=== PATIENT | female | born 1950 | race Caucasian/White ===

== ENCOUNTER 2017-08-20 16:18 | Emergency (ER) | payer MEDICARE, BC ==
[~2017-08-20] VITALS: Ht 170.2 cm; Wt 68.0 kg
[2017-08-20] MEDS ORDERED: IV NORMAL SALINE 500 ML IV ONE (16:45)
[2017-08-20] MEDS ORDERED: MORPHINE SULFATE 2 MG/1 ML DISP.SYRIN IV ONE (16:45)
[2017-08-20] MEDS ORDERED: ONDANSETRON IV *ER 4 MG/2 ML VIAL IV ONE (16:45)
[2017-08-20] MEDS ORDERED: MORPHINE SULFATE 2 MG/1 ML DISP.SYRIN ONE ×2 (16:57→17:08)
[2017-08-20] MEDS ORDERED: ONDANSETRON 4 MG/2 ML VIAL ONE (16:57)
--- NOTE | 2017-08-20 18:55 | NUR ---
dr. hernandez talking to dr. kingsley for ortho consult again
[2017-08-20] MEDS ORDERED: HYDROMORPHONE 1 MG/1 ML DISP.SYRIN IV ONE (19:30)
[2017-08-20] MEDS ORDERED: HYDROMORPHONE 1 MG/1 ML DISP.SYRIN ONE (19:41)
--- NOTE | 2017-08-20 19:57 | NUR ---
Pt medicted for pain. Pt splinted, pos CMS s/p application. IV dc'd, catheter intact. Drsg applied. No problems noted to site.
--- NOTE | 2017-08-20 20:07 | NUR ---
Called [facility], spoke with JAME Durant to update that pt was headed directly to their facility s/p discharge from here.
[2017-08-20 20:08] VITALS: BP 144/78
== END 2017-08-20 20:10 | disposition home or self-care (01) ==
LOC: ER 16:19
DX: S52.591A Other fractures of lower end of right radius, initial encounter for closed fracture (principal); W19.XXXA Unspecified fall, initial encounter; Y93.89 Activity, other specified; Y92.89 Other specified places as the place of occurrence of the external cause; Y99.8 Other external cause status
CPT/HCPCS: 73090; 73100; 73120; A4663; J1170; J2270; J2405; J7030

== ENCOUNTER 2017-12-28 15:12 | Inpatient (IN) | payer MEDICARE, BC ==
[~2017-12-28] VITALS: Ht 170.2 cm; Wt 68.0 kg
[2017-12-28 15:50] LABS: BASOPHILS % (AUTO) 0.2 % (0.0-2.0); EOSINOPHILS % (AUTO) 0.1 % (0.0-7.0); HEMOGLOBIN 14.2 g/dL (10.9-14.3); LYMPHOCYTES # (AUTO) 0.2 K/uL (20.0-40.0); LYMPHOCYTES % (AUTO) 2.8 % (20.5-51.5); MEAN CORPUSCULAR HEMOGLOBIN 29.7 uug (24.7-32.8); MEAN CORPUSCULAR HGB CONC 33 g/dL (32.3-35.6); MEAN CORPUSCULAR VOLUME 90.1 fL (75.5-95.3); MONOCYTES # (AUTO) 0.2 K/uL (2.0-10.0); MONOCYTES % (AUTO) 2.7 % (0.0-11.0); NEUTROPHILS % (AUTO) 94.2 % (38.5-71.5); PLATELET COUNT (AUTO) 143 K/uL (179-408); RED BLOOD CELL COUNT(AUTO) 4.78 MIL/uL (3.63-4.92); WHITE BLOOD COUNT (AUTO) 7.4 K/uL (3.8-11.8)
[2017-12-28 15:56] LABS: CREATININE 0.8 mg/dL (0.6-1.3); POTASSIUM 4.1 mmol/L (3.5-5.1)
[2017-12-28 16:09] LABS: BILIRUBIN,DIRECT 0.1 mg/dL (0.0-0.2); BILIRUBIN,TOTAL 0.6 mg/dL (0.2-1.0); TOTAL PROTEIN, SERUM 7.6 g/dL (6.4-8.2)
[2017-12-28] MEDS ORDERED: NITROGLYCERIN OINT 1 GM PACKET TP ONE ×2 (16:30→16:37)
[2017-12-28] MEDS ORDERED: ASPIRIN 81 MG TAB.CHEW PO ONE (16:30)
[2017-12-28] MEDS ORDERED: ASPIRIN 81 MG TAB.CHEW ONE (16:37)
--- NOTE | 2017-12-28 16:46 | NUR ---
Patient and spouse are still refusing IV line insertion despite repeated bedside teachings about the importance of the IV line for patient with chest pains, MD notified. Patient is now waiting for telemetry bed & nurse assigned from 2nd floor clinic charge nurse Merlie.
[2017-12-28] MEDS ORDERED: MAGNESIUM HYDROXIDE 30 ML LIQUID UDC PO PRN (17:15)
[2017-12-28] MEDS ORDERED: ONDANSETRON 4 MG/2 ML VIAL IV PRN (17:15)
[2017-12-28] MEDS ORDERED: ZOLPIDEM 5 MG TABLET PO PRN (17:15)
[2017-12-28] MEDS ORDERED: HYDROCODONE/APAP 5-325MG TABLET PO PRN (17:15)
[2017-12-28] MEDS ORDERED: MORPHINE SULFATE 2 MG/1 ML DISP.SYRIN IV PRN (17:15)
[2017-12-28] MEDS ORDERED: Z GUARD REMEDY PASTE 57 GM TUBE TOP PRN (17:15)
[2017-12-28 17:30] VITALS: BP 108/64
[2017-12-28] MEDS ORDERED: MORPHINE SULFATE 4 MG/1 ML DISP.SYRIN IV PRN (17:30)
--- NOTE | 2017-12-28 17:30 | NUR ---
received from ER per stretcher awake alert and oriented, with c/o nausea vomiting , diarrhea and chest discomfort, at bedside, Dr Faulkner here and talking to pt and , routine admission care rendered, oriented to bed controls, call light within reach
--- NOTE | 2017-12-28 18:58 | NUR ---
ADMISSION COMPLETED AT THE BEDSIDE PATIENT HAS NO IV ACCESS AND PER THE ER REPORT PATIENT AND HER REFUSED INSERTION OF IV HEPL[place].
[2017-12-28 20:24] VITALS: BP 92/49
[2017-12-28] MEDS ORDERED: ENOXAPARIN SODIUM 40 MG/0.4 ML DISP.SYRIN SQ SCH (21:00)
[2017-12-28] MEDS ORDERED: NITROGLYCERIN OINT 1 GM PACKET TP SCH (21:00)
--- NOTE | 2017-12-28 21:05 | NUR ---
PT RECEIVED IN BED, AWAKE. FAMILY AT BEDSIDE. A/OX4. ABLE TO MAKE NEEDS KNOWN. V/S STABLE. IN NO ACUTE DISTRESS. PT C/O NEW ONSET LEFT SIDE NECK PAIN 04/10, REFUSES PAIN MEDICATIONS. ICE PACK PROVIDED. 70 SINUS RHYTHM ON THE TELE MONITOR. NO IV IN PLACE. PT REFUSES, MD AWARE. ON RA, TOLERATING WELL. PT HAS FEVER OF 100.5, COOLING MEASURES PROVIDED. BLANKETS REMOVED, ROOM COOLED, AND ICE PACK IN PLACE. SAFETY MEASURES IMPLEMENTED. CALL LIGHT WITHIN REACH.
[2017-12-28] MEDS: ACETAMINOPHEN 325 MG TABLET PO PRN (21:10)
--- NOTE | 2017-12-29 | NUR ---
PT REFUSED MIDNIGHT V/S. IN STABLE CONDITION. WILL CONT TO MONITOR.
[2017-12-29 04:24] VITALS: BP 112/60
[2017-12-29] MEDS: ACETAMINOPHEN 325 MG TABLET PO PRN (05:26)
--- NOTE | 2017-12-29 05:55 | NUR ---
END OF SHIFT NOTES. PT SLEPT WELL THROUGHOUT SHIFT. IN STABLE CONDITION. 78 SINUS RHYTHM ON THE TELE MONITOR. CONT TO REFUSE IV PLACEMENT. TOLERATED RA WELL. PT HAS FEVER OF 100.1F. COOLING MEASURES CONTINUED. ROOM TEMP DECREASED, BLANKETS REMOVED, ICE PACK PROVIDED. TYLENOL ADMINISTERED ORDERED. ALL NEEDS ATTENDED. SAFETY MAINTAINED. CALL LIGHT WITHIN REACH.
[2017-12-29 06:43] LABS: BASOPHILS % (AUTO) 0.1 % (0.0-2.0); EOSINOPHILS % (AUTO) 0.1 % (0.0-7.0); HEMATOCRIT 41.3 % (31.2-41.9); HEMOGLOBIN 13.7 g/dL (10.9-14.3); LYMPHOCYTES # (AUTO) 0.6 K/uL (20.0-40.0); LYMPHOCYTES % (AUTO) 9.5 % (20.5-51.5); MEAN CORPUSCULAR HEMOGLOBIN 29.8 uug (24.7-32.8); MEAN CORPUSCULAR HGB CONC 33 g/dL (32.3-35.6); MONOCYTES # (AUTO) 0.3 K/uL (2.0-10.0); MONOCYTES % (AUTO) 5.1 % (0.0-11.0); NEUTROPHILS # (AUTO) 5.3 K/uL (1.8-8.9); NEUTROPHILS % (AUTO) 85.2 % (38.5-71.5); PLATELET COUNT (AUTO) 124 K/uL (179-408); RED BLOOD CELL COUNT(AUTO) 4.59 MIL/uL (3.63-4.92); WHITE BLOOD COUNT (AUTO) 6.2 K/uL (3.8-11.8)
[2017-12-29 06:54] LABS: CREATININE 0.8 mg/dL (0.6-1.3); MAGNESIUM 1.8 mg/dL (1.8-2.4); PHOSPHOROUS 3.5 mg/dL (2.5-4.9); POTASSIUM 3.8 mmol/L (3.5-5.1)
[2017-12-29] MEDS ORDERED: PANTOPRAZOLE SODIUM 40 MG TABLET.DR PO SCH (07:00)
--- NOTE | 2017-12-29 07:25 | NUR ---
RECEIVED SHIFT REPORT FROM DESKTOP SUPPORT ASSOCIATE NURSE. PATIENT AWAKE, RESTING COMFORTABLY IN BED. STABLE CONDITION, NO S/S OF DISTRESS. NO COMPLAINTS OF PAIN. PT. REFUSES IV TO BE INSERTED. CALL LIGHT WITHIN REACH. WILL MONITOR TEMP.
--- NOTE | 2017-12-29 08:15 | NUR ---
ADDITIONAL TABLET OF PROTONIX 40 MG PO PULLED OUT OF PIXIS BECAUSE THE FIRST DOSE WAS DROPPED ONTO THE FLOOR.
[2017-12-29] MEDS ORDERED: ASPIRIN 325 MG TABLET PO SCH (09:00)
[2017-12-29 11:27] VITALS: BP 103/58
--- NOTE | 2017-12-29 11:54 | NUR ---
PATIENT DISCHARGED AT THIS TIME IN STABLE CONDITION, NO S/S OF DISTRESS. VITAL SIGNS STABLE. ACCOMPANIED BY NAMED MAX. BEING DISCHARGED HOME. BELONGINGS CHECKLIST COMPLETED AND SIGNED BY PT. DISCHARGE INSTRUCTIONS/EDUCATION PROVIDED AND GIVEN A COPY TO PATIENT. DISCHARGE PACKET ALSO PROVIDED TO PATIENT. TELEMETRY BOX RETURNED TO TAILING MACHINE OPERATOR. ID BAND TAKEN OFF. PATIENT DID NOT HAVE IV LINE DUE TO REFUSAL. TROPONIN RESULT CAME BACK NEGATIVE AND PATIENT ABLE TO BE DISCHARGED. PT AMBULATORY AND LEFT HOSPITAL W/ IN SAFE CONDITION.
== END 2017-12-29 11:54 | disposition home or self-care (01) | DRG 153 ==
LOC: ER 15:13 → TELE 16:59
PROVIDERS: ADMIT Internal Medicine; ATTEND Internal Medicine
DX: J06.9 Acute upper respiratory infection, unspecified (principal); I47.1 Supraventricular tachycardia; E86.0 Dehydration; F41.9 Anxiety disorder, unspecified; R07.89 Other chest pain; R79.89 Other specified abnormal findings of blood chemistry; Z82.49 Family history of ischemic heart disease and other diseases of the circulatory system; Z87.81 Personal history of (healed) traumatic fracture
CPT/HCPCS: 36415; 70030-TC; 71045; 83735; 84100; 85025; 85730; 87400; 93005; 93307; A4663

== ENCOUNTER 2023-04-02 20:28 | Emergency (ER) | payer MEDICARE ==
[~2023-04-02] VITALS: Ht 170.2 cm; Wt 56.7 kg
--- NOTE | 2023-04-02 20:42 | NUR ---
Patient placed in room 1A.
[2023-04-02] MEDS ORDERED: ASPIRIN 81 MG TAB.CHEW ONE (20:56)
--- NOTE | 2023-04-02 20:56 | NUR ---
Called [facility] urgent care darrell richards to emi hospitalist to get patient lab results.
[2023-04-02] MEDS ORDERED: NITROGLYCERIN 0.4 MG/TAB BOTTLE SL ONE ×2 (20:57→21:00)
[2023-04-02] MEDS ORDERED: NITROGLYCERIN OINT 1 GM PACKET TP ONE ×2 (20:57→21:00)
[2023-04-02] MEDS ORDERED: ASPIRIN 81 MG TAB.CHEW PO ONE (21:00)
[2023-04-02] MEDS ORDERED: ACETAMINOPHEN ES 500 MG TABLET PO ONE (21:15)
--- NOTE | 2023-04-02 21:20 | NUR ---
Chest xray at bedside
[2023-04-02 21:24] LABS: HEMATOCRIT 41.7 % (31.2-41.9); MEAN CORPUSCULAR HEMOGLOBIN 29.8 uug (24.7-32.8); MEAN CORPUSCULAR VOLUME 90.4 fL (75.5-95.3); PLATELET COUNT (AUTO) 195 K/uL (179-408)
[2023-04-02 21:33] LABS: CARBON DIOXIDE 34 mmol/L (21-32); CHLORIDE 102 mmol/L (98-107); CREATININE 0.6 mg/dL (0.6-1.3); GLUCOSE 102 mg/dL (74-106); POTASSIUM 4.2 mmol/L (3.5-5.1); UREA NITROGEN, BLOOD 27 mg/dL (7-18)
[2023-04-02 21:45] LABS: ALANINE AMINOTRANSFERASE 22 U/L (14-59); ALKALINE PHOSPHATASE 82 U/L (50-136); ASPARTATE AMINOTRANSFERASE 18 U/L (15-37); BILIRUBIN,DIRECT 0.1 mg/dL (0.0-0.2); BILIRUBIN,TOTAL 0.3 mg/dL (0.2-1.0); TOTAL PROTEIN, SERUM 7.5 g/dL (6.4-8.2)
[2023-04-02] MEDS ORDERED: ZOLP5TAB2 PO (22:10)
--- NOTE | 2023-04-03 00:17 | NUR ---
Patient discharged to home in stable condition. Written and verbal after care instructions given. Patient verbalizes understanding of instructions. Stressed follow up or return to ER for worsening s/s.
[2023-04-03 00:58] VITALS: BP 144/74
== END 2023-04-03 00:17 | disposition home or self-care (01) ==
LOC: ER 20:28
DX: R07.89 Other chest pain (principal); M54.6 Pain in thoracic spine; Z79.899 Other long term (current) drug therapy; Z20.822 Contact with and (suspected) exposure to COVID-19
CPT/HCPCS: 36415; 71045; 84484; 85025; 93005; A4663